=== PATIENT | female | born 2000 | race Caucasian/White ===

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

== ENCOUNTER 2022-12-28 11:08 | Emergency (ER) | payer OTHER ==
[2022-12-28 11:21] VITALS: BP 104/68; PULSE 70; RESP 16; TEMP 97.8; BMI 24.3
[2022-12-28] MEDS ORDERED: ACETAMINOPHEN 500 MG TABLET (FP) PO ONE (11:56)
[2022-12-28] MEDS ORDERED: ACETAMINOPHEN 500 MG TABLET (FP) ONE (12:09)
== END 2022-12-28 12:20 | disposition home or self-care (01) ==
LOC: FER 11:08
DX: S60.011A Contusion of right thumb without damage to nail, initial encounter (principal); M79.645 Pain in left finger(s); X50.9XXA Other and unspecified overexertion or strenuous movements or postures, initial encounter; Y99.0 Civilian activity done for income or pay
CPT/HCPCS: 73130-TC-LT-FY; 99283-25